=== PATIENT | male | born 1965 | race American Indian/Alaskan Native ===

== ENCOUNTER 2017-07-11 10:01 | Emergency (ER) | payer MEDICAID ==
[2017-07-11 10:15] VITALS: BMI 31.9
[2017-07-11] MEDS ORDERED: Sodium Chloride 0.9% 1,000 ML IV STA (10:35)
--- NOTE | 2017-07-11 10:46 | ED PDOC ---
HPI: Abdomen Time Seen by Provider: 07/11/17 10:28 Chief Complaint (Provider): Abdominal pain History Per: Patient History/Exam Limitations: no limitations Onset/Duration Of Symptoms: Days (x1) Current Symptoms Are (Timing): Still Present Location Of Pain/Discomfort: Epigastric Quality Of Discomfort: "Pain" Associated Symptoms: Vomiting, Other (burning in throat). denies: Fever, Chills , Diarrhea Additional Complaint(s): Dylan Ro is a 52 year old male, with a past medical history of HTN, who presents to the emergency department complaining of epigastric pain associated with vomiting and burning in throat onset since yesterday. Patient reports symptoms began after eating [employer]. He denies any fever, chills, diarrhea or blood in stool. No further medical complaints. PMD: None provided. Past Medical History Reviewed: Historical Data, Nursing Documentation, Vital Signs Vital Signs: Last Vital Signs Temp 100.5 F H 07/11/17 10:16 Pulse 89 07/11/17 10:16 Resp 20 07/11/17 10:16 BP 141/77 07/11/17 10:16 Pulse Ox 98 07/11/17 10:49 - Medical History PMH: HTN - Surgical History Surgical History: No Surg Hx - Family History Family History: States: No Known Family Hx - Home Medications Home Medications: Ambulatory Orders Medication Instructions Recorded Famotidine [Pepcid] 20 mg PO Q12 #20 tab 07/11/17 Ondansetron [Zofran] 4 mg PO Q8H #10 tab 07/11/17 - Allergies Allergies/Adverse Reactions: Allergies Allergy/AdvReac Type Severity Reaction Status Date / Time No Known Allergies Allergy Verified 07/11/17 11:05 Review of Systems ROS Statement: Except As Marked, All Systems Reviewed And Found Negative Constitutional: Negative for: Fever, Chills ENT: Positive for: Throat Pain (burning in throat) Gastrointestinal: Positive for: Vomiting, Abdominal Pain (epigastric). Negative for: Diarrhea, Hematochezia Physical Exam - Reviewed Nursing Documentation Reviewed: Yes Vital Signs Reviewed: Yes - Physical Exam Appears: Positive for: Non-toxic, No Acute Distress Head Exam: Positive for: ATRAUMATIC, NORMOCEPHALIC Skin: Positive for: Normal Color, Warm, Dry Eye Exam: Positive for: Normal appearance Neck: Positive for: Painless ROM Cardiovascular/Chest: Positive for: Regular Rate, Rhythm. Negative for: Murmur Respiratory: Positive for: Normal Breath Sounds. Negative for: Respiratory Distress Gastrointestinal/Abdominal: Positive for: Tenderness (epigastric) Back: Positive for: Normal Inspection. Negative for: L CVA Tenderness, R CVA Tenderness, Vertebral Tenderness Extremity: Positive for: Normal ROM (full ROM on all extremities). Negative for : Tenderness, Deformity, Swelling Neurologic/Psych: Positive for: Alert, Oriented. Negative for: Motor/Sensory Deficits - Laboratory Results Result Diagrams: 07/11/17 11:22 07/11/17 11:22 - ECG O2 Sat by Pulse Oximetry: 98 (RA) Pulse Ox Interpretation: Normal - Progress Re-evaluation Time: 12:10 Condition: Improved Medical Decision Making Medical Decision Making: Initial Plan: --CMP --Lipase --Sodium Chloride 1,000 ml IV 100 mls/hr --Pepcid 20 mg IVP --Zofran ODT 4 mg PO --Reevaluation Scribe Attestation: Documented by Joseph Garcia, acting as a scribe for Yaniv Clark MD Provider Scribe Attestation: All medical record entries made by the Scribe were at my direction and personally dictated by me. I have reviewed the chart and agree that the record accurately reflects my personal performance of the history, physical exam, medical decision making, and the department course for this patient. I have also personally directed, reviewed, and agree with the discharge instructions and disposition. Disposition - Clinical Impression Clinical Impression: Gastritis - Patient ED Disposition Is Patient to be Admitted: No Counseled Patient/Family Regarding: Studies Performed, Diagnosis, Need For Followup, Rx Given - Disposition Referrals: [facility] [Outside] Disposition: Routine/Home Disposition Time: 12:11 Condition: FAIR Prescriptions: Famotidine [Pepcid] 20 mg PO Q12 #20 tab Ondansetron [Zofran] 4 mg PO Q8H #10 tab Instructions: Gastritis
[2017-07-11 11:27] LABS: BASO # 0.1 K/uL (0.0-0.2); BASO % 0.4 % (0.0-2.0); EOS % 0.1 % (0.0-4.0); LYMPH # 0.3 K/uL (1.0-4.3); LYMPH % 2.6 % (20.0-40.0); MEAN CELL VOLUME 95.4 fl (80.0-94.0); MEAN CORPUSCULAR HEMOGLOBIN 32.5 pg (27.0-31.0); MEAN CORPUSCULAR HGB CONC 34.1 g/dL (33.0-37.0); MEAN PLATELET VOLUME 7.8 fl (7.2-11.7); MONO # 0.5 K/uL (0.0-0.8); MONO % 3.9 % (0.0-10.0); NEUT # 11.9 K/uL (1.8-7.0); NRBC % 0.1 % (0.0-0.0); PLATELET COUNT 268 K/uL (130-400); RBC 3.99 Mil/uL (4.40-5.90); WHITE BLOOD COUNT 12.8 K/uL (4.8-10.8)
[2017-07-11 11:39] LABS: ALB/GLOB RATIO 1.1 (1.0-2.1); ALBUMIN 4.1 g/dL (3.5-5.0); ALT/SGPT 33 U/L (21-72); AST/SGOT 25 U/L (17-59); BLOOD UREA NITROGEN 14 mg/dl (9-20); CALCIUM 9.2 mg/dL (8.4-10.2); GFR AFRICAN-AMERICAN > 60; GFR NON-AFRICAN AMERICAN 53; LIPASE 41 U/L (23-300)
[2017-07-11 12:47] VITALS: BP 126/76; PULSE 78; RESP 16; TEMP 98; O2SAT 99
[2017-07-11 13:34] LABS: LYMPHOCYTE 4 % (20-50); MONOCYTE 4 % (0-10); NEUTROPHIL 92 % (42-75); PLATELET ESTIMATE NORMAL (NORMAL); TOTAL CELLS COUNTED 100
== END 2017-07-11 12:47 | disposition home or self-care (01) ==
LOC: H.ER 10:01
DX: K29.70 Gastritis, unspecified, without bleeding (principal); I10 Essential (primary) hypertension
CPT/HCPCS: 80053; 83690; 85025; 96361; 96374; 99283; J7040

== ENCOUNTER 2017-07-31 06:15 | Emergency (ER) | payer MEDICAID ==
[2017-07-31 06:15] VITALS: BMI 31.9
[2017-07-31] MEDS ORDERED: Sodium Chloride 0.9% 1,000 ML IV STA (07:17)
[2017-07-31] MEDS ORDERED: Iohexol 240 (50 ml) PO ONE (07:20)
[2017-07-31] MEDS ORDERED: Iohexol 240 (50 ml) ONE (07:47)
[2017-07-31 08:43] LABS: BASO # 0.1 K/uL (0.0-0.2); BASO % 0.7 % (0.0-2.0); EOS % 0.3 % (0.0-4.0); HEMOGLOBIN 10.5 g/dL (12.0-18.0); LYMPH # 0.6 K/uL (1.0-4.3); LYMPH % 6.8 % (20.0-40.0); MEAN CELL VOLUME 95.5 fl (80.0-94.0); MEAN CORPUSCULAR HEMOGLOBIN 32.3 pg (27.0-31.0); MEAN CORPUSCULAR HGB CONC 33.8 g/dL (33.0-37.0); MONO # 0.4 K/uL (0.0-0.8); NEUT # 7.7 K/uL (1.8-7.0); NEUT % 87.2 % (50.0-75.0); NRBC % 0.2 % (0.0-0.0); PLATELET COUNT 346 K/uL (130-400); RBC 3.26 Mil/uL (4.40-5.90); RED CELL DISTRIBUTION WIDTH 14.4 % (11.5-14.5); WHITE BLOOD COUNT 8.9 K/uL (4.8-10.8)
[2017-07-31 09:15] LABS: ALB/GLOB RATIO 0.9 (1.0-2.1); ALBUMIN 3.5 g/dL (3.5-5.0); ALT/SGPT 30 U/L (21-72); AST/SGOT 35 U/L (17-59); BLOOD UREA NITROGEN 15 mg/dl (9-20); CALCIUM 8.6 mg/dL (8.4-10.2); GFR AFRICAN-AMERICAN > 60; GFR NON-AFRICAN AMERICAN 53; LIPASE 72 U/L (23-300)
--- NOTE | 2017-07-31 10:20 | ED PDOC ---
HPI: Abdomen Time Seen by Provider: 07/31/17 07:08 Chief Complaint (Nursing): Abdominal Pain Chief Complaint (Provider): Vomiting and Abdominal Pain History Per: Patient History/Exam Limitations: no limitations Onset/Duration Of Symptoms: Hrs Outside of [place] travel?: No Current Symptoms Are (Timing): Still Present Quality Of Discomfort: "Pain" Associated Symptoms: Vomiting. denies: Fever, Nausea, Chest Pain, Constipation Exacerbating Factors: None Alleviating Factors: None Additional Complaint(s): 52 year old male presents to the emergency department complaining of several episodes of vomiting associated with upper and left sided abdominal pain. Patient states that he noticed small specs of blood in his vomit. Denies melena , BRBPR, dizziness, fever,. He further reports that he was seen in the emergency department on July 11 for similar complaints. At this time no imaging was performed an he was discharged on pepsin which he is currently taking. of note: Patient has hypertension but is currently not taking any medications. Past Medical History Reviewed: Historical Data, Nursing Documentation, Vital Signs Vital Signs: Last Vital Signs Temp 98.8 F 07/31/17 14:38 Pulse 74 07/31/17 14:38 Resp 15 07/31/17 14:38 BP 137/83 07/31/17 14:38 Pulse Ox 96 08/12/17 10:12 - Medical History PMH: HTN - Surgical History Surgical History: No Surg Hx - Family History Family History: States: Unknown Family Hx - Social History Current smoker - smoking cessation education provided: Yes Ex-Smoker (has not smoked in the last 12 months): No Alcohol: None Drugs: Denies - Home Medications Home Medications: Ambulatory Orders Medication Instructions Recorded Famotidine [Pepcid] 20 mg PO Q12 #20 tab 07/11/17 Ondansetron [Zofran] 4 mg PO Q8H #10 tab 07/11/17 Ciprofloxacin [Cipro] 500 mg PO BID #10 tab 07/31/17 Famotidine [Pepcid] 40 mg PO DAILY #10 tab 07/31/17 traMADol [Ultram] 50 mg PO TID PRN #12 tab 07/31/17 - Allergies Allergies/Adverse Reactions: Allergies Allergy/AdvReac Type Severity Reaction Status Date / Time No Known Allergies Allergy Verified 07/11/17 11:05 Review of Systems ROS Statement: Except As Marked, All Systems Reviewed And Found Negative Constitutional: Negative for: Fever Gastrointestinal: Positive for: Vomiting (w/ small specs of blood), Abdominal Pain (upper and left sided4). Negative for: Melena, Other (no BRBPR) Neurological: Negative for: Dizziness Physical Exam - Reviewed Nursing Documentation Reviewed: Yes Vital Signs Reviewed: Yes - Physical Exam Appears: Positive for: Non-toxic, No Acute Distress Head Exam: Positive for: ATRAUMATIC, NORMAL INSPECTION, NORMOCEPHALIC Skin: Positive for: Normal Color, Warm, Dry. Negative for: Rash Eye Exam: Positive for: Normal appearance, EOMI, PERRL. Negative for: Nystagmus ENT: Positive for: Normal ENT Inspection. Negative for: Nasal Congestion, Tonsillar Exudate Neck: Positive for: Normal, Painless ROM, Supple Cardiovascular/Chest: Positive for: Regular Rate, Rhythm, Chest Non Tender. Negative for: Tachycardia Respiratory: Positive for: Normal Breath Sounds. Negative for: Rales, Rhonchi, Wheezing, Respiratory Distress Gastrointestinal/Abdominal: Positive for: Bowel Sounds, Soft, Tenderness (mild left sided; upper and lower). Negative for: Mass, Guarding, Rebound Back: Positive for: Normal Inspection. Negative for: L CVA Tenderness, R CVA Tenderness Extremity: Positive for: Normal ROM. Negative for: Tenderness, Calf Tenderness , Deformity, Swelling Neurologic/Psych: Positive for: Alert, Oriented, Gait - Laboratory Results Result Diagrams: 07/31/17 07:30 07/31/17 07:30 - ECG O2 Sat by Pulse Oximetry: 96 (RA) Pulse Ox Interpretation: Normal Medical Decision Making Medical Decision Makin Initial Impression 52 year old male presenting with vomiting and upper abdominal pain Initial Plan: * CT ABD PELVIS PO & IV Contrast * CMP * Lipase * Troponin * NS 1000 mls IV 1000 mls/hr * Iohexol 50mL PO * Pepcid 20mg IV * Ketorolac 15mg * IVP Zofran 4 mg IV * Urinalysis * Reevaluation Blood work revealed hemoglobin 10.5 down 3 points from July 11, plan will be to get CT imaging IV fluid and initiation of Pepcid CT report reviewed Requires outpatient GI eval and importance of this explained in detail with questions answered Documented by Fabi Carvalho acting as a scribe for Huang Dueñas III, DO. All medical record entries made by the Scribe were at my direction and personally dictated by me. I have reviewed the chart and agree that the record accurately reflects my personal performance of the history, physical exam, medical decision making, and the department course for this patient. I have also personally directed, reviewed, and agree with the discharge instructions and disposition. Disposition - Clinical Impression Clinical Impression: Abdominal pain, Ureteral stone, Hematemesis - Patient ED Disposition Is Patient to be Admitted: No Counseled Patient/Family Regarding: Studies Performed, Diagnosis, Need For Followup - Disposition Referrals: Huang Ruelas MD, PhD [Staff Provider] - Disposition: Routine/Home Disposition Time: 13:00 Condition: STABLE Additional Instructions: Take medications as directed. ITS VERY IMPORTANT TO SEE THE GI SPECIALIST TO HAVE FURTHER TESTING DONE. EXPLAINED ITS POSSIBLE YOU ARE LOSING BLOOD IN YOUR INTESTINE AND NEED POSSIBLY ENDOSCOPY AND/OR COLONOSCOPY FOR FURTHER EVALUATION. RETURN TO ER FOR ANY WORSE OR NEW SYMPTOMS. Prescriptions: Ciprofloxacin [Cipro] 500 mg PO BID #10 tab Famotidine [Pepcid] 40 mg PO DAILY #10 tab traMADol [Ultram] 50 mg PO TID PRN #12 tab PRN Reason: Pain, Moderate (4-7) Instructions: Gastrointestinal Bleeding, Renal Colic Forms: [employer] ([place])
[2017-07-31 11:09] LABS: URINE BACTERIA RARE (<OCC); URINE BILIRUBIN NEGATIVE (NEGATIVE); URINE BLOOD SMALL (NEGATIVE); URINE CLARITY CLEAR (Clear); URINE COLOR YELLOW (YELLOW); URINE GLUCOSE (UA) NEG (Normal); URINE LEUKOCYTE ESTERASE NEG Leu/uL (Negative); URINE PROTEIN NEGATIVE (NEGATIVE); URINE UROBILINOGEN 0.2-1.0 mg/dL (0.2-1.0)
[2017-07-31] MEDS ORDERED: Sodium Chloride 0.9% 100 ML ONE (11:40)
[2017-07-31] MEDS ORDERED: Iohexol 300 100 ML IJ ONE (11:40)
[2017-07-31 12:47] LABS: BANDS 2 % (0-2); BASOPHIL 1 % (0-2); EOSINOPHIL 1 % (0-7); LYMPHOCYTE 5 % (20-50); MONOCYTE 4 % (0-10); NEUTROPHIL 87 % (42-75); TOTAL CELLS COUNTED 100
[2017-07-31 12:48] LABS: PLATELET ESTIMATE NORMAL (NORMAL)
[2017-07-31 12:49] LABS: HYPOCHROMIC SLIGHT; OVALOCYTES SLIGHT; SCHISTOCYTES SLIGHT
--- NOTE | 2017-07-31 13:08 | CT ---
PROCEDURE: CT Abdomen and Pelvis with contrast HISTORY: L sided abd pain COMPARISON: None. TECHNIQUE: Contrast dose: Radiation dose: Total exam DLP = mGy-cm. This CT exam was performed using one or more of the following dose reduction techniques: Automated exposure control, adjustment of the mA and/or kV according to patient size, and/or use of iterative reconstruction technique. FINDINGS: LOWER THORAX: Unremarkable. LIVER: 4 cm right hepatic hemangioma.. No gross lesion or ductal dilatation. GALLBLADDER AND BILE DUCTS: gallstones.. PANCREAS: Unremarkable. No gross lesion or ductal dilatation. SPLEEN: Unremarkable. ADRENALS: Unremarkable. No mass. KIDNEYS AND URETERS: Delayed nephrogram on the left with distal ureteral calculus measuring 1 mm.. No hydronephrosis. No solid mass. VASCULATURE: Unremarkable. No aortic aneurysm. BOWEL: Unremarkable. No obstruction. No gross mural thickening. APPENDIX: Normal appendix. PERITONEUM: Unremarkable. No free fluid. No free air. LYMPH NODES: Unremarkable. No enlarged lymph nodes. BLADDER: Unremarkable. REPRODUCTIVE: Unremarkable. BONES: No acute fracture. OTHER FINDINGS: None. IMPRESSION: Delayed nephrogram on the left with a 1 mm left ureteral calculus. Perinephric edema along the left kidney.
[2017-07-31 14:39] VITALS: BP 137/83; PULSE 74; RESP 15; TEMP 98.8
[2017-08-12 10:12] VITALS: O2SAT 96
== END 2017-07-31 14:38 | disposition home or self-care (01) ==
LOC: H.ER 06:15
DX: N20.1 Calculus of ureter (principal); K92.0 Hematemesis; R10.9 Unspecified abdominal pain; I10 Essential (primary) hypertension
CPT/HCPCS: 74177; 80053; 81003; 83690; 84484; 85025; 96374; 99283; G0328; J1885; J2405; J7030; Q9966; Q9967